=== PATIENT | female | born 1965 | race Caucasian/White ===

== ENCOUNTER 2019-02-05 15:08 | Outpatient (CLI) | payer OTHER ==
--- NOTE | 2019-02-07 09:07 | Mammography Report ---
Reason: SCREENING MAMMO Procedure Date: 02/05/2019 Accession Number: [id number] / [id number] Procedure: DEVIN - Screening Mammo w/Marcos CPT Code: FULL RESULT: EXAM: Screening Mammo w/Marcos DATE: 02/05/2019 4:00 PM CLINICAL HISTORY: Screening encounter. History of nulliparity. TECHNIQUE: (B) - Bilateral CC and MLO views were obtained. COMPARISON: None PARENCHYMAL PATTERN: (A) - The breast(s) demonstrate(s) scattered fibroglandular densities. FINDINGS: There are no suspicious masses, calcifications, or areas of distortion. IMPRESSION: Negative examination. BI-RADS category 1. RECOMMENDATION: (ANNUAL) - Recommend routine annual screening mammography. BI-RADS CATEGORY: (1) - Negative. STANDARD QUALIFYING STATEMENTS: 1. This examination was not reviewed with the aid of Computer-Aided Detection (CAD). 2. A negative or benign imaging report should not preclude biopsy if clinically suspicious findings are present. 3. Dense breasts may obscure an underlying neoplasm. 4. This examination was reviewed with the aid of 3D breast imaging (tomosynthesis).
== END 2019-02-05 15:09 | disposition home or self-care (01) ==
LOC: DI 15:08
PROVIDERS: ATTEND Family Medicine
DX: Z12.31 Encounter for screening mammogram for malignant neoplasm of breast (principal)
CPT/HCPCS: 77063; 77067

== ENCOUNTER 2019-10-03 11:27 | Outpatient (CLI) | payer OTHER ==
--- NOTE | 2019-10-03 13:56 | Ultrasound Report ---
Reason: MASS AND LUMP NECK Procedure Date: 10/03/2019 Accession Number: [id number] / [id number] Procedure: US - Head or Neck Soft Tissue CPT Code: Final Report FULL RESULT: EXAM: SOFT TISSUE NECK ULTRASOUND EXAM DATE: 10/03/2019 11:52 AM. CLINICAL HISTORY: MASS AND LUMP NECK. COMPARISON: None. TECHNIQUE: Real time sonographic imaging of the thyroid was performed by the sonoscope operator. Multiple software support representative static images were saved for review. FINDINGS: At the area of interest within the right neck, there is a lymph node measuring 2.1 x 0.8 x 0.5 cm. It demonstrates normal morphology. IMPRESSION: At the area of interest within the right neck, there is a lymph node measuring 2.1 x 0.8 x 0.5 cm. It demonstrates normal sonographic morphology. RADIA
== END 2019-10-03 11:28 | disposition home or self-care (01) ==
LOC: DI 11:27
PROVIDERS: ATTEND Family Medicine
DX: R22.1 Localized swelling, mass and lump, neck (principal)
CPT/HCPCS: 76536

== ENCOUNTER 2019-12-27 20:16 | Emergency (ER) | payer OTHER ==
--- NOTE | 2019-12-27 23:27 | ED Physician Documentation ---
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 She initially felt that her symptoms were c/w seasonal allergies but symptoms have progressed and are more pronounced than any of her previous seasonal allergy episodes Review of Systems Constitutional: denies: Fever, Chills, Myalgias, Sweats Eyes: reports: Discharge, Irritation. 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 - Present Medications Home Medications: Ambulatory Orders Medication Instructions Recorded Confirmed Escitalopram [Lexapro] 10 mg PO DAILY 06/18/16 12/27/19 Amox/Clav 875/125 [Augmentin] 1 each PO Q12H #14 tablet 12/27/19 - Allergies Allergies/Adverse Reactions: Allergies Allergy/AdvReac Type Severity Reaction Status Date / Time No Known Drug Allergies Allergy Verified 06/18/16 13:14 - Living Situation Living Arrangement: reports: At home - Social History Does the pt smoke?: No Smoking Status: Never smoker Does the pt drink ETOH?: No Does the pt have substance abuse?: No PD ED PE NORMAL - Vitals Vital signs reviewed: Yes - General General: Alert and oriented X 3, No acute distress, Well developed/nourished - HEENT HEENT: Ears normal, Moist mucous membranes, Pharynx benign - Neck Neck: Supple, no meningeal sign - Cardiac Cardiac: RRR, No murmur - Respiratory Respiratory: No respiratory distress, Clear bilaterally - Derm Derm: No rash PD ED PE EXPANDED - HEENT HEENT: Right maxillary sinus TTP, Left maxillary sinus TTP - Eyes Eyes: Normal eyelids, Injected conj/sclera (bilateral) Results - Vitals Vitals: Vital Signs - 24 hr 12/27/19 12/28/19 20:26 00:06 Temperature 36.2 C L Heart Rate 86 55 L Respiratory 16 18 Rate Blood Pressure 159/99 H 152/105 H O2 Saturation 98 99 Oxygen O2 Source Room air PD MEDICAL DECISION MAKING - ED course Complexity details: considered differential, d/w patient Departure - Departure Disposition: 01 Home, Self Care Clinical Impression: Sinusitis, Conjunctivitis Condition: Good Instructions: ED Conjunctivitis Nonspecific, ED Sinusitis Abx Tx Follow-Up: Alex Robison MD [Primary Care Provider] - (3-5 days if not improving ) Prescriptions: Amox/Clav 875/125 [Augmentin] 1 each PO Q12H #14 tablet Comments: use the antibiotic drops as follows: 1 drop in each eye three times per day for 5-7 days (can stop on day 5 or 6 if symptoms have resolved) Discharge Date/Time: 12/28/19 00:08
[2019-12-27] MEDS ORDERED: POLYMYXIN B/TRIMETH OPHTH DROPS EACHEYE STA (23:39)
[2019-12-27] MEDS ORDERED: AMOX/CLAV 875 MG/125 MG TABLET PO STA (23:39)
[2019-12-28 00:07] VITALS: BP 152/105
== END 2019-12-28 00:08 | disposition home or self-care (01) ==
LOC: ED 20:16
DX: J32.0 Chronic maxillary sinusitis (principal); H10.9 Unspecified conjunctivitis
CPT/HCPCS: 99282; 99284; A9270

== ENCOUNTER 2020-10-16 10:58 | Outpatient (CLI) | payer OTHER ==
--- NOTE | 2020-10-19 09:25 | Mammography Report ---
BILATERAL DIGITAL SCREENING MAMMOGRAM 3D/2D: 10/16/2020 CLINICAL: Routine screening. Comparison is made to exam dated: 02/05/2019 mammogram - [facility]. There are scat tered fibroglandular elements in both breasts. No significant masses, calcifications, or other findings are seen in either breast. There has been no significant interval change. IMPRESSION: NEGATIVE There is no mammographic evidence of malignancy. A 1 year screening mammogram is recommended. This exam was interpreted at Station ID: [id number]. NOTE: For mammograms, a report in lay terms will be sent to the patient. Approximately 15% of breast malignancies will not be visualized mammographically. In the management of a palpable breast mass, a negative mammogram must not discourage biopsy of a clinically suspicious lesion. Electronically Signed By: Steven Sutton M.D. [facility] [place]/penrad:10/16/2020 14:04:34 ACR BI-RADS Category 1: Negative 3341F PARENCHYMAL PATTERN: (A) - The breast(s) demonstrate(s) scattered fibroglandular densities. BI-RADS CATEGORY: (1) - 1 RECOMMENDATION: (ANNUAL) - Recommend routine annual screening mammography. [id number] 1 year screening LATERALITY: (B)
== END 2020-10-16 10:59 | disposition home or self-care (01) ==
LOC: DI 10:58
PROVIDERS: ATTEND Physician Assistant
DX: Z12.31 Encounter for screening mammogram for malignant neoplasm of breast (principal)

== ENCOUNTER 2021-06-08 15:04 | Outpatient (CLI) | payer OTHER ==
[2021-06-08 15:21] LABS: BASOPHILS % (AUTO) 0.5 %; EOSINOPHILS % (AUTO) 0.5 %; HCT - HEMATOCRIT 43.2 % (37.0-47.0); LYMPHOCYTES # (AUTO) 1.7 10^3/uL (1.5-3.5); LYMPHOCYTES % (AUTO) 22.7 %; MEAN CORPUSCULAR HEMOGLOBIN 29.4 pg (27.0-31.0); MEAN CORPUSCULAR HGB CONC 32.4 g/dL (32.0-36.0); MEAN CORPUSCULAR VOLUME 90.8 fL (81.0-99.0); MEAN PLATELET VOLUME 11.6 fL (7.9-10.8); MONOCYTES # (AUTO) 0.5 10^3/uL (0.0-1.0); MONOCYTES % (AUTO) 6.6 %; NEUTROPHILS # (AUTO) 5.3 10^3/uL (1.5-6.6); NEUTROPHILS % (AUTO) 69.6 %; PLT - PLATELET COUNT 234 10^3/uL (130-450); RED BLOOD COUNT 4.76 10^6/uL (4.20-5.40); RED CELL DISTRIBUTION WIDTH 12.9 % (12.0-15.0); WHITE BLOOD COUNT 7.6 x10^3/uL (4.8-10.8)
[2021-06-08 15:49] LABS: ALBUMIN 4.5 g/dL (3.2-5.5); ALBUMIN/GLOBULIN RATIO 1.4 (1.0-2.2); BILIRUBIN,TOTAL 0.8 mg/dL (0.2-1.0); CALCIUM 9.6 mg/dL (8.5-10.3); CREATININE 0.8 mg/dL (0.4-1.0); POTASSIUM 4.2 mmol/L (3.5-5.0); TOTAL PROTEIN 7.8 g/dL (6.7-8.2)
== END 2021-06-08 15:05 | disposition home or self-care (01) ==
LOC: LAB 15:04
PROVIDERS: ATTEND Nurse Practitioner Family
DX: K75.4 Autoimmune hepatitis (principal); F41.9 Anxiety disorder, unspecified; R63.4 Abnormal weight loss
CPT/HCPCS: 36415; 80053; 84443; 85025

== ENCOUNTER 2021-08-09 11:35 | Emergency (ER) | payer OTHER ==
[2021-08-09 13:24] LABS: BASOPHILS % (AUTO) 0.4 %; EOSINOPHILS # (AUTO) 0.1 10^3/uL (0.0-0.7); EOSINOPHILS % (AUTO) 0.9 %; HCT - HEMATOCRIT 43.8 % (37.0-47.0); HGB - HEMOGLOBIN 14.4 g/dL (12.0-16.0); LYMPHOCYTES # (AUTO) 1.8 10^3/uL (1.5-3.5); LYMPHOCYTES % (AUTO) 23.8 %; MEAN CORPUSCULAR HEMOGLOBIN 30.1 pg (27.0-31.0); MEAN CORPUSCULAR HGB CONC 32.9 g/dL (32.0-36.0); MEAN CORPUSCULAR VOLUME 91.6 fL (81.0-99.0); MEAN PLATELET VOLUME 11.5 fL (7.9-10.8); MONOCYTES # (AUTO) 0.5 10^3/uL (0.0-1.0); NEUTROPHILS % (AUTO) 67.6 %; PLT - PLATELET COUNT 232 10^3/uL (130-450); RED BLOOD COUNT 4.78 10^6/uL (4.20-5.40); RED CELL DISTRIBUTION WIDTH 12.6 % (12.0-15.0); WHITE BLOOD COUNT 7.4 x10^3/uL (4.8-10.8)
--- NOTE | 2021-08-09 13:33 | XRAY Report ---
PROCEDURE: Chest 1 View X-Ray INDICATIONS: hypotension TECHNIQUE: One view of the chest was acquired. COMPARISON: None FINDINGS: Surgical changes and devices: None. Lungs and pleura: No pleural effusions or pneumothorax. Lungs are clear. Mediastinum: Mediastinal contours appear normal. Heart size is normal. Bones and chest wall: No suspicious bony lesions. Overlying soft tissues appear unremarkable. IMPRESSION: No acute pulmonary process. Reviewed by: Cyndi Callahan MD on 08/09/2021 1:32 PM [facility] Approved by: Cyndi Callahan MD on 08/09/2021 1:32 PM [facility] Station ID: [id number]
[2021-08-09 13:40] LABS: ALBUMIN 4.4 g/dL (3.2-5.5); ALBUMIN/GLOBULIN RATIO 1.3 (1.0-2.2); BILIRUBIN,TOTAL 0.5 mg/dL (0.2-1.0); CALCIUM 9.7 mg/dL (8.5-10.3); CREATININE 0.9 mg/dL (0.4-1.0); POTASSIUM 4.7 mmol/L (3.5-5.0); TOTAL PROTEIN 7.7 g/dL (6.7-8.2)
[2021-08-09 14:12] VITALS: BP 151/106
--- NOTE | 2021-08-09 14:31 | ED Physician Documentation ---
History of Present Illness - Stated complaint Stated Complaint: LIGHTHEADED - Chief complaint Chief Complaint: Neuro - History obtained from History obtained from: Patient - History of Present Illness Timing: How many days ago (4) Pain level max: 0 Pain level now: 0 - Additonal information Additional information: Patient is a 55-year-old female who states about 4 days ago she had an episode of transient hypotension. She felt lightheaded and dizzy during this event. No chest pain. No shortness of breath. No abdominal pain. No nausea or vomiting. No focal neurological deficits. She had recently doubled her dose of bupropion. No other medication changes. She has since stopped that medication and has not had any recurrent episodes. She states that her doctor told her to come here for evaluation of potential stroke. Patient had no numbness, tingling, difficulty with words or other stroke symptoms. 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 - Present Medications Home Medications: Ambulatory Orders Medication Instructions Recorded Confirmed Escitalopram [Lexapro] 5 mg PO DAILY 06/18/16 08/09/21 buPROPion [Wellbutrin Xl] 300 mg ORAL DAILY 08/09/21 08/09/21 - Allergies Allergies/Adverse Reactions: Allergies Allergy/AdvReac Type Severity Reaction Status Date / Time No Known Drug Allergies Allergy Verified 08/09/21 11:45 - Social History Does the pt smoke?: No Smoking Status: Never smoker Does the pt drink ETOH?: No Does the pt have substance abuse?: No - Immunizations Immunizations are current?: No Immunizations: Other immun current PD ED PE NORMAL - Vitals Vital signs reviewed: Yes - General General: Alert and oriented X 3, No acute distress - HEENT HEENT: Moist mucous membranes - Neck Neck: Supple, no meningeal sign - Cardiac Cardiac: RRR - Respiratory Respiratory: No respiratory distress, Clear bilaterally - Abdomen Abdomen: Soft, Non tender, Non distended - Derm Derm: Warm and dry - Extremities Extremities: No edema - Neuro Neuro: Alert and oriented X 3, 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, No motor deficit, No sensory deficit, Normal speech Eye Opening: Spontaneous Motor: Obeys Commands Verbal: Oriented GCS Score: 15 Results - Vitals Vitals: Vital Signs - 24 hr 08/09/21 08/09/21 11:47 14:12 Temperature 36.4 C L Heart Rate 63 73 Respiratory 16 21 Rate Blood Pressure 146/90 H 151/106 H O2 Saturation 99 96 Oxygen O2 Source Room air - EKG (time done) 1358 Rate: Rate (enter#) (62) Rhythm: NSR Hammond: Normal Intervals: Normal VT QRS: Normal Ischemia: Normal ST segments - Labs Labs: Laboratory Tests 08/09/21 08/09/21 08/09/21 13:13 13:13 13:13 WBC 7.4 RBC 4.78 Hgb 14.4 Hct 43.8 MCV 91.6 MCH 30.1 MCHC 32.9 RDW 12.6 Plt Count 232 MPV 11.5 H Neut # (Auto) 5.0 Lymph # (Auto) 1.8 Aiken # (Auto) 0.5 Eos # (Auto) 0.1 Baso # (Auto) 0.0 Absolute Nucleated RBC 0.00 Nucleated RBC % 0.0 Sodium 134 L Potassium 4.7 Chloride 98 L Carbon Dioxide 29 Anion Gap 7.0 BUN 22 H Creatinine 0.9 Estimated GFR (MDRD) 65 L Glucose 95 Calcium 9.7 Total Bilirubin 0.5 AST 19 ALT 16 Alkaline Phosphatase 45 Troponin I High Sens 3.3 Total Protein 7.7 Albumin 4.4 Globulin 3.3 Albumin/Globulin Ratio 1.3 Lipase 36 - Rads (name of study) cxr Radiology: Final report received, EMP read contemporaneously, See rad report (no acute disease) PD MEDICAL DECISION MAKING - ED course Complexity details: reviewed results, considered differential, d/w patient ED course: Patient is asymptomatic in the emergency department. No acute findings on EKG or laboratory testing. No indication for emergent neuroimaging. No evidence of stroke. Transient hypotension may have been caused by her increase in medication dosage. We will have her follow-up with her doctor for further care. Patient counseled regarding signs and symptoms for which I believe and urgent re-evaluation would be necessary. Patient with good understanding of and agreement to plan and is comfortable going home at this time This document was made in part using voice recognition software. While efforts are made to proofread this document, sound alike and grammatical errors may occur. Departure - Departure Disposition: 01 Home, Self Care Clinical Impression: Hypotension Qualifiers: Hypotension type: unspecified hypotension type Qualified Code(s): I95.9 - Hypotension, unspecified Condition: Good Instructions: ED Hypotension All Causes Follow-Up: AMELIA DOHERTY ARNP [Primary Care Provider] - Within 1 week Comments: The cause of your symptoms is unclear from a few days ago. Please follow-up with your doctor for further care. Your testing is normal here today. Discharge Date/Time: 08/09/21 14:41
== END 2021-08-09 14:41 | disposition home or self-care (01) ==
LOC: ED 11:35
DX: I95.9 Hypotension, unspecified (principal)
CPT/HCPCS: 36415; 80053; 83690; 84484; 85025; 93005; 99283; 99284

== ENCOUNTER 2022-03-08 09:41 | Outpatient (CLI) | payer OTHER ==
--- NOTE | 2022-03-09 10:29 | Mammography Report ---
BILATERAL DIGITAL SCREENING MAMMOGRAM 3D/2D: 03/08/2022 CLINICAL: Routine screening. Comparison is made to exams dated: 10/16/2020 mammogram and 02/05/2019 mammogram - [facility]. There are scattered areas of fibroglandular density in both breasts (category b / 25%-50% glandular t issue). No significant masses, calcifications, or other findings are seen in either breast. There has been no significant interval change. IMPRESSION: NEGATIVE There is no mammographic evidence of malignancy. A 1 year screening mammogram is recommended. Based on the Tyrer Cuzick model (a risk assessment model) the patients lifetime risk is 8.6% and her 10 year risk is 2.6%. According to the ACR, ACS, and NCCN guidelines, an annual breast MRI exam leslye g with mammogram is recommended if the patients lifetime risk is 20% or greater. This exam was interpreted at Station ID: [id number]. NOTE: For mammograms, a report in lay terms will be sent to the patient. Approximately 15% of breast malignancies will not be visualized mammographically. In the management of a palpable breast mass, a negative mammogram must not discourage biopsy of a clinically suspicious lesion. Electronically Signed By: Dennis Leonard M.D. [facility]/penrad:03/08/2022 14:10:44 ACR BI-RADS Category 1: Negative 3341F PARENCHYMAL PATTERN: (A) - The breast(s) demonstrate(s) scattered fibroglandular densities. BI-RADS CATEGORY: (1) - 1 RECOMMENDATION: (ANNUAL) - Recommend routine annual screening mammography. [id number] 1 year screening LATERALITY: (B)
== END 2022-03-08 09:42 | disposition home or self-care (01) ==
LOC: DI 09:41
PROVIDERS: ATTEND Nurse Practitioner Family
DX: Z12.31 Encounter for screening mammogram for malignant neoplasm of breast (principal)

== ENCOUNTER 2023-08-14 11:49 | Emergency (ER) | payer OTHER ==
--- NOTE | 2023-08-14 12:17 | ED Physician Documentation ---
PD HPI UPPER EXT INJURY - Stated complaint Stated Complaint: GLF - Chief complaint Chief Complaint: Trauma Ext - History obtained from History obtained from: Patient - Additonal information Additional information: She got tripped by dog at the dog park yesterday. She fell backward into the right. Her leg, the right one, folded under her and she has lateral ankle pain on the right and pain over the right scaphoid. She has mild left wrist pain. No other injuries. No head injury. She is able to walk and bear weight. 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 - Present Medications Home Medications: Ambulatory Orders Medication Instructions Recorded Confirmed Escitalopram [Lexapro] 10 mg PO DAILY 06/18/16 08/14/23 - Allergies Allergies/Adverse Reactions: Allergies Allergy/AdvReac Type Severity Reaction Status Date / Time No Known Drug Allergies Allergy Verified 08/14/23 11:57 - Social History Does the pt smoke?: No Smoking Status: Never smoker Does the pt drink ETOH?: Yes Does the pt have substance abuse?: Yes Substance Use and Type: CBD oil / Products - Immunizations Immunizations are current?: Yes Immunizations: Other immun current - POLST Patient has POLST: No PD ED PE NORMAL - Vitals Vital signs reviewed: Yes - General General: Alert and oriented X 3, No acute distress - Neck Neck: Supple, no meningeal sign, No bony TTP - Extremities Extremities: Other (Left wrist is completely nontender with full range of motion. Right wrist is very mildly tender over the anatomic snuffbox but no pain with axial loading of the thumb. She has good range of motion of the wrist. 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 Clinically low suspicion for scaphoid injury, but rpt radiographs advised if still with sx. Normal gait. Departure - Departure Disposition: 01 Home, Self Care Clinical Impression: Right ankle sprain Qualifiers: Involved ligament of ankle: anterior talofibular ligament Injury of wrist Qualifiers: Encounter type: initial encounter Laterality: right Qualified Code(s): S69.91XA - Unspecified injury of right wrist, hand and finger(s), initial encounter Condition: Good Record reviewed to determine appropriate education?: Yes Instructions: ED Sprain Ankle W X Ray, ED Sprain Wrist Follow-Up: [facility] [Provider Group] Comments: To me the x-rays look without fracture, you do have a significant amount of arthritis in the right wrist at the first carpometacarpal joint, but I do not see a fracture or anything acute. Given the location of your pain it is reasonable to repeat x-rays in a week or 2 if you are still having wrist pain to double check the scaphoid, but clinically I do not think that is broken either. Tylenol and/or ibuprofen as needed for pain. Ice affected areas and you can put apply compression to the ankle. Return for new or worsening symptoms. If you are still having pain in a week or 2 of the right wrist either follow-up with your doctor, return here, or you can make an appointment in our orthopedic clinic. The number for that is on this form. Forms: PCP List Discharge Date/Time: 08/14/23 12:47
--- NOTE | 2023-08-14 12:53 | XRAY Report ---
PROCEDURE: Wrist 3+V RT INDICATIONS: wrist inj TECHNIQUE: 3 views of the wrist were acquired. COMPARISON: None. FINDINGS: Bones: No fractures or dislocations. No suspicious bony lesions. First CMC arthritic changes. Soft tissues: No suspicious soft tissue calcifications or masses. IMPRESSION: No visualized acute fracture or dislocation. However, occult injury cannot be excluded. Recommend rena rt interval imaging follow-up in 7-10 days as clinically indicated for additional evaluation. Reviewed by: Cyndi Callahan MD on 08/14/2023 12:52 PM [facility] Approved by: Cyndi Callahan MD on 08/14/2023 12:52 PM [facility] Station ID: [id number]
--- NOTE | 2023-08-14 12:54 | XRAY Report ---
PROCEDURE: Ankle 3+V RT INDICATIONS: Trauma TECHNIQUE: 3 views of the ankle were acquired. COMPARISON: None. FINDINGS: Bones: No acute fractures or dislocations. Ankle mortise is normally aligned. No suspicious bony l esions. Soft tissues: Nonspecific soft tissue edema is seen, which is most prominent over the lateral malleo ruchi. Possible tibiotalar effusion. IMPRESSION: Nonspecific soft tissue edema, most prominent over the lateral malleolus. No acute osseous abnormalit y. If there is clinical concern or persistent symptoms, additional imaging such as repeat radiographs or advanced imaging (e.g. CT, MRI) may be helpful for further evaluation. Reviewed by: Elio Centeno MD on 08/14/2023 12:53 PM PST Approved by: Elio Centeno MD on 08/14/2023 12:53 PM PST Station ID: [id number]
[2023-08-14 13:02] VITALS: BP 132/80; O2SAT 100
== END 2023-08-14 12:47 | disposition home or self-care (01) ==
LOC: ED 11:49
DX: S93.491A Sprain of other ligament of right ankle, initial encounter (principal); S69.91XA Unspecified injury of right wrist, hand and finger(s), initial encounter; W01.0XXA Fall on same level from slipping, tripping and stumbling without subsequent striking against object, initial encounter; Y93.K1 Activity, walking an animal; Y92.89 Other specified places as the place of occurrence of the external cause
CPT/HCPCS: 99283; 99284

== ENCOUNTER 2024-01-26 11:24 | Outpatient (CLI) | payer OTHER ==
--- NOTE | 2024-01-29 09:45 | Mammography Report ---
BILATERAL DIGITAL SCREENING MAMMOGRAM 3D/2D: 01/26/2024 CLINICAL: Routine screening. Comparison is made to exams dated: 03/08/2022 mammogram, 10/16/2020 mammogram, and 02/05/2019 mammogram - [facility]. There are scattered areas of fibroglandular density in both breasts (category b / 25%-50% glandular t issue). No significant masses, calcifications, or other findings are seen in either breast. There has been no significant interval change. IMPRESSION: NEGATIVE There is no mammographic evidence of malignancy. A 1 year screening mammogram is recommended. Based on the Tyrer Cuzick model (a risk assessment model) the patient's lifetime risk is 8.4% and her 10 year risk is 2.9%. According to the ACR, ACS, and NCCN guidelines, an annual breast MRI exam leslye g with mammogram is recommended if the patient's lifetime risk is 20% or greater. This exam was interpreted at Station ID: [id number]. NOTE: For mammograms, a report in lay terms will be sent to the patient. Approximately 15% of breast malignancies will not be visualized mammographically. In the management of a palpable breast mass, a negative mammogram must not discourage biopsy of a clinically suspicious lesion. Electronically Signed By: Steven puentes/hang:01/26/2024 13:40:17 letter sent: No_Letter ACR BI-RADS Category 1: Negative 3341F PARENCHYMAL PATTERN: (A) - The breast(s) demonstrate(s) scattered fibroglandular densities. BI-RADS CATEGORY: (1) - 1 RECOMMENDATION: (ANNUAL) - Recommend routine annual screening mammography. [id number] 1 year screening LATERALITY: (B)
== END 2024-01-26 11:25 | disposition home or self-care (01) ==
LOC: DI 11:24
PROVIDERS: ATTEND Internal Medicine
DX: Z12.31 Encounter for screening mammogram for malignant neoplasm of breast (principal); R92.323 Mammographic fibroglandular density, bilateral breasts